=== PATIENT | male | born 1950 | race Caucasian/White ===

== ENCOUNTER 2020-12-29 07:20 | Outpatient (CLI) | payer MEDICARE, OTHER ==
[2020-12-29] VITALS (13 sets, daily range): BP systolic 108–141; BP diastolic 65–90
[~2020-12-29] VITALS: Ht 177.8 cm; Wt 71.5 kg
[2020-12-29] MEDS ORDERED: NS IV 1000 ML 1,000 ML IV STA (08:10)
[2020-12-29 08:11] LABS: BASOPHILS % (AUTO) 1 % (0-10); EOSINOPHILS # (AUTO) 0.2 10^3/uL (0.0-0.3); EOSINOPHILS % (AUTO) 3 % (0-10); HEMATOCRIT 34 % (40-54); HEMOGLOBIN 11.2 g/dL (13.3-17.7); LYMPHOCYTES # (AUTO) 1.9 10^3/uL (1.0-4.0); LYMPHOCYTES % (AUTO) 24 % (12-44); MEAN CORPUSCULAR HEMOGLOBIN 30 pg (25-34); MEAN CORPUSCULAR HGB CONC 33 g/dL (32-36); MEAN CORPUSCULAR VOLUME 90 fL (80-99); MEAN PLATELET VOLUME 9.1 fL (9.0-12.2); MONOCYTES # (AUTO) 0.7 10^3/uL (0.0-1.0); MONOCYTES % (AUTO) 9 % (0-12); NEUTROPHILS # (AUTO) 4.9 10^3/uL (1.8-7.8); NEUTROPHILS % (AUTO) 64 % (42-75); PLATELET COUNT 368 10^3/uL (130-400); WHITE BLOOD COUNT 7.6 10^3/uL (4.3-11.0)
[2020-12-29] MEDS ORDERED: LIDOCAINE 1% INJ 20 ML 20 ML VIAL INJ ONE (08:15)
[2020-12-29] MEDS ORDERED: fentaNYL INJ 100 MCG/2 ML AMP IVP ONE (08:15)
[2020-12-29] MEDS ORDERED: MIDAZOLAM 2 MG/2 ML (VERSED) VIAL IVP ONE (08:15)
[2020-12-29] MEDS ORDERED: TMSL.4C PO (08:18)
[2020-12-29] MEDS ORDERED: SODI100047 MC (08:18)
[2020-12-29 08:23] LABS: INR 1.1 (0.8-1.4); PROTHROMBIN TIME PATIENT 14.5 SEC (12.2-14.7)
[2020-12-29] MEDS ORDERED: SERT-413 PO (09:34)
[2020-12-29] MEDS ORDERED: MEGE20TA3 PO (09:34)
[2020-12-29] MEDS ORDERED: CLON0.5T4 PO (09:34)
[2020-12-29] MEDS ORDERED: HYDROcodone/APAP 5 MG/325 MG (LORTAB) TAB PO PRN (10:15)
--- NOTE | 2020-12-29 11:46 | Pre-Op Note & Conscious Sedat ---
Pre-Operative Progress Note H&P Reviewed The H&P was reviewed, patient examined and no changes noted. Date H&P Reviewed: Dec 29, 2020 Time H&P Reviewed: 08:00 Pre-Op Diagnosis: lung mass Conscious Sedation Pre-Proced Time 08:00 ASA Score 2 For ASA 3 and 4: Consider anesthesia and medical clearance. Also, for patients with a history of failed moderate sedation consider anesthesia. Airway Lungs Heart ASA score ASA 1: a normal healthy patient ASA 2: a patient with a mild systemic disease (mid diabetes, controlled hypertension, obesity ASA 3: a patient with a severe systemic disease that limits activity (angina, COPD, prior Myocardial infarction) ASA 4: a patient with an incapacitating disease that is a constant threat to life (CHF, renal failure) ASA 5: a moribund patient not expected to survive 24 hrs. (ruptured aneurysm) ASA 6: a declared brain- patient whose organs are being harvested. For emergent operations, add the letter E after the classification Mallampati Classification Grade 2 Sedation Plan Analgesia, Amnesia, Plan communicated to team members, Discussed options with patient/fam, Discussed risks with patient/fam The patient is an appropriate candidate to undergo the planned procedure, sedation, and anesthesia. The patient immediately re-assessed prior to indication. KAREN LEONE MD Dec 29, 2020 11:46
--- NOTE | 2020-12-29 12:01 | Diagnostic Imaging Report ---
INDICATION: RIGHT UPPER LOBE LUNG MASS TECHNIQUE: All CT scans use one or more of the following dose optimizing techniques: automated exposure control, MA and/or KvP adjustment based on patient size and exam type or iterative reconstruction. The patient was brought to the CT suite and placed on the table in the prone position. Axial imaging through the chest was performed to evaluate appropriate entry site. Right posterior thorax was then prepped and draped in usual sterile fashion. The procedure was performed utilizing conscious sedation with radiology nursing and constant patient monitoring. Patient was given a total of 50 mcg of fentanyl intravenously and 0.5 mg of Versed intravenously. Total procedure time was 4 minutes. The skin of the right upper posterior thorax was anesthetized using a small amount of 1% lidocaine. An 18-gauge coaxial Temno needle was advanced and placed with its tip into the soft tissue mass in the right upper lobe. A total of four core biopsies were obtained. A blood patch was injected during needle removal. Follow-up imaging shows no complicating features. No pneumothorax is identified. Patient tolerated the procedure well and left the department in stable condition. IMPRESSION: Successful CT-guided right upper lobe lung mass biopsy utilizing conscious sedation. Pathology results are currently pending. Dictated by: Dictated on workstation # [id number]
--- NOTE | 2020-12-29 13:20 | Diagnostic Imaging Report ---
INDICATION: Right lung mass status post biopsy. TIME OF EXAM: 11:32 AM. TECHNIQUE: An expiratory radiograph of the chest was obtained. FINDINGS: The mass in the right upper lobe is again noted. There is no evidence of pneumothorax status post biopsy. There are age-indeterminate right-sided 6th and 7th rib fractures posteriorly. The left lung is clear. There is no effusion. IMPRESSION: No evidence of pneumothorax status post right upper lobe lung mass biopsy. Dictated by: Dictated on workstation # [id number]
== END 2020-12-29 12:45 | disposition home or self-care (01) ==
LOC: SDC 07:20
PROVIDERS: ATTEND Internal Medicine
DX: R91.8 Other nonspecific abnormal finding of lung field (principal)
CPT/HCPCS: 36415; 71045; 77012; 85025; 85610; 85730; 88305; 88312; 88344; 99156